=== PATIENT | female | born 1940 | race Caucasian/White ===

== ENCOUNTER → 2021-04-04 | Day surgery (SDC) | payer MEDICARE, MEDICAID ==
[~2021-04-04] MED LIST: AMLO-257 PO; ASPI-1450 PO; ASPIRIN 81 MG CHEWABLE TABLET PO ONE; CLOP75TA60 PO; DAPA1TAB5 CHEW; DEXL60CA3 PO; DIAZEPAM 5 MG TABLET PO ONE; DOCU-270 PO; DiphenhydrAMINE HCL 50 MG CAPSULE PO ONE; EZET10TA57 PO; ICOS1CAP PO; LORA10TA7 PO; METO25XL PO; MONT-35 PO; OS500 PO; ROSU10TA72 PO; SITA50 PO; SODIUM CHLORIDE 0.9% 1,000 ML IV ONE; SODIUM CHLORIDE 0.9% 1,000 ML IV SCH; SODIUM CHLORIDE 0.9% 1,000 ML ONE
== END | disposition home or self-care (01) ==
LOC: CATHLAB 05:00
PROVIDERS: ATTEND Internal Medicine Interventional Cardiology
DX: R94.39 Abnormal result of other cardiovascular function study (principal); Z53.8 Procedure and treatment not carried out for other reasons
CPT/HCPCS: J7030

== ENCOUNTER 2021-04-09 07:06 | Inpatient (IN) | payer MEDICARE, MEDICAID ==
[~2021-04-09] VITALS: Ht 154.9 cm; Wt 74.8 kg
[~2021-04-09 07:06] MED LIST changes: -ASPIRIN 81 MG CHEWABLE TABLET PO ONE; -DIAZEPAM 5 MG TABLET PO ONE; -DiphenhydrAMINE HCL 50 MG CAPSULE PO ONE; -SODIUM CHLORIDE 0.9% 1,000 ML IV ONE; -SODIUM CHLORIDE 0.9% 1,000 ML IV SCH; -SODIUM CHLORIDE 0.9% 1,000 ML ONE
[2021-04-09] MEDS ORDERED: DiphenhydrAMINE HCL 50 MG CAPSULE ONE (08:12)
[2021-04-09] MEDS ORDERED: DIAZEPAM 5 MG TABLET ONE (08:12)
[2021-04-09] MEDS ORDERED: ASPIRIN 81 MG CHEWABLE TABLET ONE (08:12)
[2021-04-09] MEDS: SODIUM CHLORIDE 0.9% 1,000 ML IV SCH (08:19)
[2021-04-09] MEDS ORDERED: DIAZEPAM 5 MG TABLET PO ONE (08:30)
[2021-04-09] MEDS ORDERED: ASPIRIN 81 MG CHEWABLE TABLET PO ONE (08:30)
[2021-04-09] MEDS ORDERED: DiphenhydrAMINE HCL 50 MG CAPSULE PO ONE (08:30)
[2021-04-09] MEDS ORDERED: SODIUM BICARBONATE 50 MEQ/50 ML VIAL ONE (08:34)
[2021-04-09] MEDS ORDERED: IOHEXOL 300 MG/ML 100 ML VIAL ONE (08:34)
[2021-04-09] MEDS ORDERED: LIDOCAINE/PF 1% 30 ML VIAL ONE (08:34)
[2021-04-09] MEDS ORDERED: HEPARIN SODIUM 1000 UNITS/NS 1,000 ML ONE (08:34)
[2021-04-09] MEDS ORDERED: IOHEXOL 300 MG/ML 50 ML VIAL ONE (08:34)
[2021-04-09] MEDS ORDERED: IOHEXOL 300 MG/ML 150 ML VIAL ONE ×2 (08:34→09:33)
[2021-04-09 08:41] LABS: GLUCOMETER DEV NAME(LOC) SDS.; GLUCOSE,POINT OF CARE 105 MG/DL (70-110)
[2021-04-09 08:49] VITALS: BP 152/71
[2021-04-09] MEDS ORDERED: FentaNYL CITRATE PF 100 MCG/2 ML VIAL ONE (09:01)
[2021-04-09] MEDS ORDERED: MIDAZOLAM HCL 2 MG/2 ML VIAL ONE (09:02)
[2021-04-09] MEDS ORDERED: IOHEXOL 300 MG/ML 150 ML VIAL IARTER ONE (09:15)
[2021-04-09] MEDS ORDERED: FentaNYL CITRATE PF 100 MCG/2 ML VIAL IVP ONE (09:15)
[2021-04-09] MEDS ORDERED: HEPARIN SODIUM 1000 UNITS/NS 1,000 ML IARTER ONE (09:15)
[2021-04-09] MEDS ORDERED: LIDOCAINE 1% 30 ML/SOD BICARB 8.4% 4 ML SQ ONE (09:15)
[2021-04-09] MEDS ORDERED: MIDAZOLAM HCL 2 MG/2 ML VIAL IVP ONE (09:15)
[2021-04-09] MEDS ORDERED: HEPARIN SODIUM,PORCINE 5,000 UNITS/ML VIAL IVP ONE ×2 (09:30→10:30)
[2021-04-09 10:02] VITALS: BP 144/64
[2021-04-09] MEDS ORDERED: HEPARIN SODIUM,PORCINE 5,000 UNITS/ML VIAL IVP PRN (10:30)
[2021-04-09 12:15] LABS: BASOPHILS % (AUTO) 0.6 % (0.0-2.0); EOSINOPHILS % (AUTO) 4.7 % (1.0-6.0); HEMATOCRIT 35.5 % (36-46); HEMOGLOBIN 11.9 g/dL (12.0-16.0); LYMPHOCYTES % (AUTO) 28.3 % (22.0-44.0); MEAN CORPUSCULAR HEMOGLOBIN 28.6 pg (26.0-34.0); MEAN CORPUSCULAR HGB CONC 33.6 G/dL (31.0-37.0); MEAN CORPUSCULAR VOLUME 85 fL (80-100); MONOCYTES # (AUTO) 0.5 K/uL (0.1-1.0); MONOCYTES % (AUTO) 6.9 % (2.0-9.0); NEUTROPHILS # (AUTO) 4.3 K/uL (1.8-7.7); NEUTROPHILS % (AUTO) 59.5 % (40.0-70.0); PLATELET COUNT (AUTO) 209 K/uL (150-450); RED BLOOD CELL COUNT(AUTO) 4.17 MIL/uL (4.00-5.20)
[2021-04-09 12:31] LABS: PROTHROMBIN TIME 10.6 SEC (9.4-11.6)
[2021-04-09] MEDS: HEPARIN SODIUM 25000 UNITS/D5W 250 ML IV SCH (12:58)
[2021-04-09] MEDS ORDERED: HEPARIN SODIUM 25000 UNITS/D5W 250 ML IV PRN (13:00)
[2021-04-09] MEDS ORDERED: DEXTROSE 50%-WATER 25 GM/50 ML SYRINGE IVP PRN (13:45)
[2021-04-09] MEDS: METOPROLOL TARTRATE 25 MG TABLET PO SCH ×2 (14:15→21:41)
[2021-04-09] MEDS ORDERED: ONDANSETRON HCL 4 MG/2 ML VIAL IVP PRN (14:15)
[2021-04-09] MEDS ORDERED: OxyCODONE HCL/ACETAMINOPHEN 5-325 MG TABLET PO PRN (14:15)
[2021-04-09 15:38] LABS: ALBUMIN 3.3 g/dL (3.4-5.0); BILIRUBIN,TOTAL 0.3 mg/dL (0.1-1.0); CREATININE 1.07 mg/dL (0.60-1.30); POTASSIUM 4.4 mmol/L (3.5-5.1); TOTAL PROTEIN, SERUM 8.1 g/dL (6.4-8.2)
[2021-04-09] MEDS ORDERED: HEPARIN SODIUM,PORCINE 5,000 UNITS/ML VIAL SQ SCH (16:00)
[2021-04-09 17:32] VITALS: BP 166/75
[2021-04-09 20:00] VITALS: BP 154/74
[2021-04-09] MEDS: INSULIN LISPRO 100 UNITS/ML SQ PRN (21:09)
[2021-04-09] MEDS: HEPARIN SODIUM,PORCINE 5,000 UNITS/ML VIAL IVP PRN (21:19)
[2021-04-09] MEDS: DOCUSATE SODIUM 100 MG CAPSULE PO SCH (21:40)
[2021-04-09] MEDS: FAMOTIDINE 20 MG TABLET PO SCH (21:41)
[2021-04-09] MEDS: ROSUVASTATIN CALCIUM 10 MG TABLET PO SCH (21:41)
[2021-04-09 22:51] LABS: GLUCOMETER DEV NAME(LOC) 5N.1C; GLUCOSE,POINT OF CARE 266 MG/DL (70-110)
[2021-04-09 22:51] LABS: GLUCOMETER DEV NAME(LOC) 5N.1C; GLUCOSE,POINT OF CARE 100 MG/DL (70-110)
[2021-04-09 23:38] VITALS: BP 145/65
[2021-04-10] MEDS: SODIUM CHLORIDE 0.9% 1,000 ML IV SCH ×2 (02:40→20:21)
[2021-04-10 04:57] LABS: BASOPHILS % (AUTO) 0.7 % (0.0-2.0); HEMATOCRIT 35.5 % (36-46); HEMOGLOBIN 11.9 g/dL (12.0-16.0); LYMPHOCYTES # (AUTO) 2.3 K/uL (1.0-4.8); LYMPHOCYTES % (AUTO) 29.9 % (22.0-44.0); MEAN CORPUSCULAR HEMOGLOBIN 28.8 pg (26.0-34.0); MEAN CORPUSCULAR HGB CONC 33.6 G/dL (31.0-37.0); MEAN CORPUSCULAR VOLUME 86 fL (80-100); MONOCYTES # (AUTO) 0.6 K/uL (0.1-1.0); MONOCYTES % (AUTO) 8.1 % (2.0-9.0); NEUTROPHILS # (AUTO) 4.2 K/uL (1.8-7.7); NEUTROPHILS % (AUTO) 55.3 % (40.0-70.0); PLATELET COUNT (AUTO) 200 K/uL (150-450); RED BLOOD CELL COUNT(AUTO) 4.15 MIL/uL (4.00-5.20); RED CELL DISTRIBUTION WIDTH 13.3 % (11.5-14.5)
[2021-04-10 05:02] VITALS: BP 145/73
[2021-04-10] MEDS: INSULIN LISPRO 100 UNITS/ML SQ PRN ×4 (06:20→20:22)
[2021-04-10] MEDS: LEVOTHYROXINE SODIUM 125 MCG TABLET PO SCH (06:23)
[2021-04-10] MEDS ORDERED: LEVOTHYROXINE SODIUM 137 MCG TABLET PO SCH (06:30)
[2021-04-10 06:46] LABS: GLUCOMETER DEV NAME(LOC) 5N.1C; GLUCOSE,POINT OF CARE 190 MG/DL (70-110)
[2021-04-10 08:00] VITALS: BP 129/68
[2021-04-10] MEDS: DOCUSATE SODIUM 100 MG CAPSULE PO SCH ×2 (08:30→20:20)
[2021-04-10] MEDS: METOPROLOL TARTRATE 25 MG TABLET PO SCH ×2 (08:30→20:20)
[2021-04-10] MEDS: ASPIRIN 81 MG CHEWABLE TABLET PO SCH (08:30)
[2021-04-10] MEDS: FAMOTIDINE 20 MG TABLET PO SCH ×2 (08:31→20:20)
[2021-04-10] MEDS ORDERED: CLOPIDOGREL BISULFATE 75 MG TABLET PO SCH (09:00)
[2021-04-10] MEDS: ACETAMINOPHEN 325 MG TABLET PO PRN (11:28)
[2021-04-10 11:34] VITALS: BP 122/56
[2021-04-10] MEDS: HEPARIN SODIUM 25000 UNITS/D5W 250 ML IV SCH (13:00)
[2021-04-10 14:41] LABS: GLUCOMETER DEV NAME(LOC) 5N.3; GLUCOSE,POINT OF CARE 219 MG/DL (70-110)
[2021-04-10 15:42] VITALS: BP 100/60
[2021-04-10 18:26] LABS: GLUCOMETER DEV NAME(LOC) 5N.1C; GLUCOSE,POINT OF CARE 218 MG/DL (70-110)
[2021-04-10 20:10] VITALS: BP 149/66
[2021-04-10] MEDS: ROSUVASTATIN CALCIUM 10 MG TABLET PO SCH (20:20)
[2021-04-11 00:16] VITALS: BP 136/66
[2021-04-11 04:41] VITALS: BP 155/59
[2021-04-11] MEDS: LEVOTHYROXINE SODIUM 125 MCG TABLET PO SCH (06:03)
[2021-04-11 07:11] LABS: GLUCOMETER DEV NAME(LOC) 5N.3; GLUCOSE,POINT OF CARE 220 MG/DL (70-110)
[2021-04-11 08:27] VITALS: BP 141/67
[2021-04-11] MEDS: HEPARIN SODIUM,PORCINE 5,000 UNITS/ML VIAL IVP PRN (08:52)
[2021-04-11] MEDS: SODIUM CHLORIDE 0.9% 1,000 ML IV SCH ×2 (09:20→20:39)
[2021-04-11] MEDS: ASPIRIN 81 MG CHEWABLE TABLET PO SCH (09:54)
[2021-04-11] MEDS: FAMOTIDINE 20 MG TABLET PO SCH ×2 (09:54→20:38)
[2021-04-11] MEDS: DOCUSATE SODIUM 100 MG CAPSULE PO SCH ×2 (09:54→20:38)
[2021-04-11] MEDS: METOPROLOL TARTRATE 25 MG TABLET PO SCH ×2 (09:54→20:38)
[2021-04-11] MEDS: INSULIN LISPRO 100 UNITS/ML SQ PRN ×2 (11:24→17:15)
[2021-04-11 12:00] VITALS: BP 146/48
[2021-04-11 13:19] LABS: BASOPHILS % (AUTO) 0.7 % (0.0-2.0); HEMATOCRIT 34.5 % (36-46); HEMOGLOBIN 11.6 g/dL (12.0-16.0); LYMPHOCYTES # (AUTO) 2.1 K/uL (1.0-4.8); LYMPHOCYTES % (AUTO) 26.9 % (22.0-44.0); MEAN CORPUSCULAR HEMOGLOBIN 28.8 pg (26.0-34.0); MEAN CORPUSCULAR HGB CONC 33.6 G/dL (31.0-37.0); MEAN CORPUSCULAR VOLUME 86 fL (80-100); MONOCYTES # (AUTO) 0.6 K/uL (0.1-1.0); MONOCYTES % (AUTO) 7.2 % (2.0-9.0); NEUTROPHILS # (AUTO) 4.6 K/uL (1.8-7.7); NEUTROPHILS % (AUTO) 58.2 % (40.0-70.0); PLATELET COUNT (AUTO) 181 K/uL (150-450); RED BLOOD CELL COUNT(AUTO) 4.02 MIL/uL (4.00-5.20)
[2021-04-11 13:34] LABS: BILIRUBIN,TOTAL 0.2 mg/dL (0.1-1.0); CALCIUM, TOTAL 8.7 mg/dL (8.8-10.5); CREATININE 1.11 mg/dL (0.60-1.30); POTASSIUM 4.3 mmol/L (3.5-5.1); TOTAL PROTEIN, SERUM 7.7 g/dL (6.4-8.2)
[2021-04-11 16:40] VITALS: BP 147/54
[2021-04-11 16:47] LABS: GLUCOMETER DEV NAME(LOC) 5N.1C; GLUCOSE,POINT OF CARE 223 MG/DL (70-110)
[2021-04-11] MEDS ORDERED: GlipiZIDE 5 MG TABLET PO SCH (17:30)
[2021-04-11 17:42] LABS: GLUCOMETER DEV NAME(LOC) 5N.1C; GLUCOSE,POINT OF CARE 176 MG/DL (70-110)
[2021-04-11 19:57] VITALS: BP 139/66
[2021-04-11] MEDS: ACETAMINOPHEN 325 MG TABLET PO PRN (20:38)
[2021-04-11] MEDS: ROSUVASTATIN CALCIUM 10 MG TABLET PO SCH (20:38)
[2021-04-11 20:51] LABS: GLUCOMETER DEV NAME(LOC) 5N.1C; GLUCOSE,POINT OF CARE 163 MG/DL (70-110)
== END 2021-04-11 23:00 | disposition short-term general hospital (02) | DRG 287 ==
LOC: CATHLAB 07:06 → 5S 07:07
PROVIDERS: ADMIT Internal Medicine; ATTEND Internal Medicine
PROC: 4A023N7 Measurement of Cardiac Sampling and Pressure, Left Heart, Percutaneous Approach (ICD-10-PCS; principal; 2021-04-09)
PROC: B41F1ZZ Fluoroscopy of Right Lower Extremity Arteries using Low Osmolar Contrast (ICD-10-PCS; 2021-04-09)
PROC: B2111ZZ Fluoroscopy of Multiple Coronary Arteries using Low Osmolar Contrast (ICD-10-PCS; 2021-04-09)
PROC: B2151ZZ Fluoroscopy of Left Heart using Low Osmolar Contrast (ICD-10-PCS; 2021-04-09)
DX: I25.110 Atherosclerotic heart disease of native coronary artery with unstable angina pectoris (principal); E11.9 Type 2 diabetes mellitus without complications; E78.5 Hyperlipidemia, unspecified; I10 Essential (primary) hypertension; E66.9 Obesity, unspecified; Z68.31 Body mass index [BMI] 31.0-31.9, adult
CPT/HCPCS: 80053; 82962; 85025; 85610; 85730; 93005; J1644; J2250; J2405; J3010; J3490; J7030; Q9967